=== PATIENT | male | born 1970 | race African-American/Black ===

== ENCOUNTER 2020-05-20 19:41 | Emergency (ER) | payer MEDICAID, OTHER ==
[~2020-05-20] VITALS: Ht 188 cm; Wt 118.0 kg
[2020-05-20] MEDS ORDERED: SODIUM CHLORIDE 0.9% 1,000 ML IV ONE (21:21)
[2020-05-20] MEDS ORDERED: LEVETIRACETAM 500MG PREMIX 100 ML IV ONE (21:30)
[2020-05-20 21:38] LABS: EOSINOPHILS % 1.2 % (0.0-5.0); HEMATOCRIT. 34.9 % (42.0-52.0); HEMOGLOBIN. 11.6 g/dL (14.0-18.0); LYMPHOCYTES % 33.3 % (20.0-50.0); MEAN CORPUSCULAR HEMOGLOBIN 31.8 pg (28.0-32.0); MEAN PLATELET VOLUME 9.9 fl (7.4-10.4); MONOCYTES % 9.9 % (2.0-8.0); NEUTROPHILS % 54.6 % (40.0-76.0); PLATELET 137 x1000/uL (130-400); RED BLOOD CELL COUNT 3.64 mill/uL (4.7-6.1); RED CELL DISTRIBUTION WIDTH 14.6 % (11.6-14.6)
[2020-05-20 21:45] LABS: CHLORIDE 107 mEq/L (98-107)
[2020-05-20 21:49] LABS: ETHANOL BLOOD 32 mg/dL
[2020-05-20 22:44] LABS: CLARITY URINE CLEAR (CLEAR); COLOR URINE YELLOW (YELLOW); KETONES URINE NEGATIVE (NEGATIVE); LEUKOCYTE ESTERASE URINE NEGATIVE (NEGATIVE); NITRITE URINE NEGATIVE (NEGATIVE); OCCULT BLOOD URINE NEGATIVE (NEGATIVE); PH URINE 6.5 (4.5-8.0); PROTEIN URINE NEGATIVE (NEGATIVE); SPECIFIC GRAVITY URINE 1.011 (1.005-1.030); UROBILINOGEN URINE 0.2 E.U./dL (0.2-1.0)
[2020-05-20 22:53] LABS: METHADONE URINE SCREEN NEGATIVE (NEGATIVE); OPIATES URINE SCREEN NEGATIVE (NEGATIVE)
[2020-05-20 22:54] LABS: *AMPHETAMINES SCREEN URINE NEGATIVE (NEGATIVE); *BARBITURATES SCREEN URINE NEGATIVE (NEGATIVE); *BENZODIAZEPINES SCREEN URINE NEGATIVE (NEGATIVE); *COCAINE SCREEN URINE NEGATIVE (NEGATIVE); CANNABINOID URINE SCREEN NEGATIVE (NEGATIVE); PHENCYCLIDINE URINE SCREEN NEGATIVE (NEGATIVE)
[2020-05-21] MEDS ORDERED: LORAZEPAM 1MG TABLET PO ONE (11:30)
[2020-05-21] MEDS ORDERED: ACETAMINOPHEN 325MG TABLET PO ONE (21:15)
[2020-05-21] MEDS: RISPERIDONE 1MG TABLET PO SCH (21:38)
[2020-05-22] MEDS: RISPERIDONE 1MG TABLET PO SCH ×2 (10:16→21:32)
[2020-05-22] MEDS ORDERED: LEVETIRACETAM 500MG TABLET PO ONE (16:30)
[2020-05-22] MEDS ORDERED: LEVETIRACETAM 500MG TABLET PO SCH (21:00)
[2020-05-22] MEDS ORDERED: QUETIAPINE FUMARATE 50MG TABLET PO SCH (22:00)
[2020-05-23 00:34] VITALS: BP 97/65
== END 2020-05-23 01:19 ==
LOC: ER 19:41 → EDBD 19:41 → ER 05-23 01:19
DX: G40.909 Epilepsy, unspecified, not intractable, without status epilepticus (principal); R45.851 Suicidal ideations; J45.909 Unspecified asthma, uncomplicated; R00.0 Tachycardia, unspecified
CPT/HCPCS: 36415; 70450; 80053; 80305; 80307; 80320; 80329; 81003; 85025; 93005; 96365; 96366; 99285; C9803; J1953; J7030; U0003; Z7610; G0480

== ENCOUNTER 2021-01-13 20:26 | Emergency (ER) | payer MEDICAID, OTHER ==
[~2021-01-13] VITALS: Ht 188 cm; Wt 102.0 kg
[2021-01-13] MEDS ORDERED: LEVETIRACETAM 500MG/5ML CUP PO ONE (21:30)
[2021-01-13 22:12] LABS: BASOPHILS % 0.4 % (0.0-2.0); EOSINOPHILS % 0.6 % (0.0-5.0); HEMATOCRIT. 39.7 % (42.0-52.0); HEMOGLOBIN. 12.7 g/dL (14.0-18.0); LYMPHOCYTES % 33.7 % (20.0-50.0); MEAN CORPUSCULAR HEMOGLOBIN 30.6 pg (28.0-32.0); MEAN CORPUSCULAR VOLUME 95.8 fL (80.0-94.0); MEAN PLATELET VOLUME 9.7 fl (7.4-10.4); MONOCYTES % 5.5 % (2.0-8.0); NEUTROPHILS % 59.8 % (40.0-76.0); PLATELET 126 x1000/uL (130-400); RED BLOOD CELL COUNT 4.15 mill/uL (4.7-6.1); RED CELL DISTRIBUTION WIDTH 14.8 % (11.6-14.6)
[2021-01-13 22:18] LABS: CHLORIDE 109 mEq/L (98-107)
[2021-01-13 22:25] LABS: PHOSPHORUS 3.3 mg/dL (2.5-4.9)
[2021-01-14 01:54] LABS: *AMPHETAMINES SCREEN URINE NEGATIVE (NEGATIVE); *BARBITURATES SCREEN URINE NEGATIVE (NEGATIVE); *BENZODIAZEPINES SCREEN URINE NEGATIVE (NEGATIVE); *COCAINE SCREEN URINE NEGATIVE (NEGATIVE); METHADONE URINE SCREEN NEGATIVE (NEGATIVE); OPIATES URINE SCREEN NEGATIVE (NEGATIVE)
[2021-01-14 01:55] LABS: CANNABINOID URINE SCREEN NEGATIVE (NEGATIVE); PHENCYCLIDINE URINE SCREEN PRESUMTIVE POSITIVE (NEGATIVE)
[2021-01-14 13:39] VITALS: BP 114/74
[2021-01-14] MEDS ORDERED: RISP1 MT (13:46)
[2021-01-14] MEDS ORDERED: BENZ1TAB7 MT (13:46)
== END 2021-01-14 14:08 | disposition home or self-care (01) ==
LOC: ER 20:26
DX: F25.1 Schizoaffective disorder, depressive type (principal); R45.851 Suicidal ideations; G40.909 Epilepsy, unspecified, not intractable, without status epilepticus; F16.10 Hallucinogen abuse, uncomplicated; Z76.5 Malingerer [conscious simulation]; Z63.4 Disappearance and death of family member; Z91.14 Patient's other noncompliance with medication regimen; J45.909 Unspecified asthma, uncomplicated
CPT/HCPCS: 36415; 80053; 80305; 80307; 80329; 83735; 84100; 85025; 93005; 99285